=== PATIENT | male | born 2000 | race Caucasian/White ===

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

== ENCOUNTER 2022-09-06 14:51 | Emergency (ER) | payer OTHER, MEDICAID, SELFPAY ==
[2022-09-06 16:10] VITALS: BP 121/62; PULSE 72; RESP 16; TEMP 36.7; O2SAT 99; BMI 23.1
--- NOTE | 2022-09-06 16:13 | ED.GENADULT ---
HPI - General Adult General Chief complaint: Ear Problems Stated complaint: sore throat, ear pain Time Seen by Provider: 09/06/22 17:53 Source: patient Mode of arrival: ambulatory Limitations: no limitations History of Present Illness HPI narrative: 22 yo male presenting to the ER for evaluation of left sided ear pain, decreased hearing for the last 4 days. Also has sore throat for the last couple of days. Pain with swallowing and eating. No fever or chills. Minimal cough. He is not vaccinated for COVID or Flu. no known sick contacts at home. MD complaint: sore throat and left ear pain Onset (ago): day(s) (4) Location: face and mouth Radiation: non-radiation Quality: aching Pain Consistency: constant Relieving factors: none Exacerbating factors: eating Associated symptoms: headaches, loss of appetite, malaise and weakness Treatments prior to arrival: none Related Data Allergies Allergy/AdvReac Type Severity Reaction Status Date / Time No Known Allergies Allergy Unverified 05/27/20 17:07 Review of Systems Review of Systems: Constitutional: No Fever, No Chills ENT/Mouth: + sore throat, No Rhinorrhea, + Swallowing Difficulty, +Otalgia Cardiovascular: No Chest Pain, No SOB Respiratory: + Cough, No Sputum, No Wheezing, No dyspnea Gastrointestinal: No Nausea, No Vomiting, No Diarrhea, No abdominal Pain Musculoskeletal: No joint pain, + Myalgias Skin: No Skin Lesions, No rash Neuro: + Weakness, No Numbness, No Dizziness, + Headache Psych: No Anxiety/Panic, No Depression Heme/Lymph: No Lymphadenopathy PMFSH Past Medical History Medical History (Updated 09/06/22 @ 18:10 by JAMESON Li) No known health problems Social History Social History Advance Directives: No Advance Directives Information Provided: No Physical Exam ED Vital Signs: Vital Signs - 24 hr 09/06/22 16:10 Temperature 98.1 F Pulse Rate 72 Respiratory Rate 16 Blood Pressure 121/62 Pulse Oximetry 99 Oxygen Delivery Method Room Air BMI result Body Mass Index 23.1 Appearance: Alert. Oriented X3. No acute distress. Eyes: Pupils equal, round and reactive to light. ENT: Pharynx with moist mucus membranes. Moderate posterior pharyngeal erythema without notable exudate. uvula midline. normal voice and handling secretions normally. normal right TM and EAC. Left EAC blocked with cerumen. Neck: Normal inspection. Neck supple. CVS: Normal heart rate and rhythm. Pulses normal. Respiratory: No respiratory distress. Breath sounds normal. Skin: Skin warm and dry. Normal skin color. Normal skin turgor. No rashes. Extremities: No lower extremity edema. Neuro: Oriented X 3. grossly normal, nonfocal Course Course Course Narrative: 16:13 - 22 yo male presenting with left ear pain and sore throat for the last 4-5 days. Unknown if fevers at home. No sick contacts. Posterior pharyngeal erythema noted, uvula midline, difficulty visualizing tonsils. Left EAC blocked with cerumen, some EAC wall erythema noted. unable to visualize TM. will need to be irrigated or curetted for visualization. Will check strep, covid and flu swabs. Reevaluation(s) Reevaluation #1: COVID+. Strep negative. VS remain stable. No resp distress. Cerumen almost completely removed with irrigation and curette. Stable for d/c home with supportive care. Return precautions discussed. Procedures Ear Wax Removal Left Ear: Cerumenolytic Used: other (H2O2/NaCl combination) Results: Re-examined: some cerumen remains TM Examination: TM(s) intact, normal appearance Ear Canal Exam: atraumatic Patient Tolerated Procedure: well and no complications Complications: no problems Medical Decision Making Lab Data Labs: Lab Results 09/06/22 09/06/22 09/06/22 Range/Units 16:20 16:20 16:20 COVID-19 (KAREEM) Positive A (Negative) COVID-19 Clin Com See Note Influenza Type A (VALORIE) Negative (Negative) Influenza Type B (VALORIE) Negative (Negative) Influenza A & B Note See Note S. pyogenes GrpA VALORIE Negative (Negative) Discharge Plan Discharge Clinical Impression: Impacted cerumen of left ear, COVID-19 Patient Disposition: Home, Self-Care Instructions: Covid-19 Viral Syndrome and Novel Coronavirus (ED) Hey/Ath Additional Instructions: You were found to be COVID-19 POSITIVE today. Rest. Drink plenty of fluids. Do not go out in public for the one week. Take over the counter cold/flu medications as needed for your symptoms. Take Tylenol and/or Motrin as needed for fevers and body aches. Recommend over the counter Chloraseptic spray and Cepacol lozenges as needed for sore throat. Use warm salt water gargles 2-3 times per day. Use debrox drops in your ear. No Q-tips. Follow up with your doctor as needed. Stand Alone Forms: Work/School Release
[2022-09-06 16:49] LABS: COVID-19 Test Positive (Negative); IDNOW Serial# 16C4AD1C; Strep A Nucleic Acid Negative (Negative)
[2022-09-06 16:52] LABS: IDNOW Serial# BCCEAD1C; Influenza A Negative (Negative); Influenza B2 Negative (Negative)
--- OUTSIDE RECORDS SUMMARY | 2022-09-06 18:02 | XMS_ITS ---
:2000 Author Care Team Providers Name Role Phone [facility] Primary Care Provider [phone] Allergies Code Code System Name Reaction Severity Status Onset NKDA ? Medications Name Status Start Date Stop Date ? ? hydrocortisone 2.5 % topical cream Completed ? 09/08/2021 triamcinolone acetonide 0.1 % topical ointment Completed ? 09/08/2021 Problems No Known Problems Procedures None recorded. Results Lab Results Date Name Specimen Result Interpretation Description Value Range Status Address ? 09/08/2021 SARS CoV 2 ? Covid-19, ? ? Final [facility] RNA PCR Reference (COVID-19), Labor atories: QL, shoes hand sewer-PCR, [address], Spec[place] 09/08/2021 Rapid Flu ? Flu a negative ? ? Spr - Home: [address] (A+B) (Ref: Neg) [address], [place] ? ? ? Flu B (Ref: negative ? ? Sp r - Home: [address], [place] ? ? ? Control Visualized/Valid ? ? Spr - Home: [address], [place] ? ? ? Location [place], ? ? Spr - [address] [facility] [address], [facility], [address], [place] [address], [id number] 09/08/2021 Rapid SARS ? Covid-19 negative ? ? Spr - Home: [address] CoV 2 Ag, QL (Ref: Neg) [address], [place], [place] Res[place] Spec[place] ? ? ? Control Visualized/Valid ? ? Spr - Home: [address], [place] ? ? ? Location SPR, ? ? Spr - H ome: [address] [facility] [address], [facility], [address], [place] [address], [id number] ? ? ? Race & Other ? ? S pr - Home: [address], [place] ? ? ? Language [place] ? ? Spr - Home: [address] ? ? ? Disability None ? ? Spr - Home: [address] Past Encounters Encounter Date Diagnosis Provider 09/08/2021 Exposure to SARS-CoV-2; Acute Upper Cynthia donny Boone, ATTENDING PSYCHIATRIST: [address] [place] [place] [address], Ph. [phone] Social History Tobacco Smoking Status Never Smoker Vaccine List Notes: UTD with childhood vaccinastion s but no influenza or COVID vaccinations Plan of Care Patient Instructions Thank you for your visit with [facility] today. You were seen today because of your headache and cough. You may have received medications and lab tests may have been performed. At this time, we do not see evidence that you have a serious cause of your headache such as infection or bleeding. However, we cannot always find the exact cause of your symptoms on your initial visit. Please follow up wit h your doctor within 24 hours to be rech ecked. Seek immediate medical attention if your headache worsens, you develop a fever, neck pain or neck stiffness, or if you become confused or abnormally drowsy. Upper respiratory infection is irritatio n in the air passages of your lungs. This irritation may cause you to cough or have other breathing problems. This often starts because of another viral illness, such as a cold or the flu. The illness s preads from your nose and throat to your windpipe and airways. Bronchitis is often called a chest cold. Viral illness can last about 2 weeks and is usually not a serious illness. INSTRUCTIONS Medicines: Ibuprofen or acetaminophen: These medici susie help lower a fever and treat aches. Refer to the bottles for proper dosing based on age and weight. Use as needed. Do not take either of these medicines for m ore than 3 days in a row. Prolonged use of Ibuprofen can hurt your kidney and stomach. Prolonged use of Tylenol can injure your liver. Cough medicine: Avld-rkb-xtehkzy (OTC) m edicine helps loosen mucus in your lungs and make it easier to cough up. OTC cough medicine should NOT be used in children under age 3. Self Care: 1) Do not smoke or allow others to smoke around you. Please call the [employer] Quit Line at to help in smoking cessation. Avoid chemicals, fumes, and dust. 2) Stay well hydrated 3) Seek care immediately if you: - develop a fever - develop a rash - become increasingly short of breath o r you do not begin to improve 3-5 days (it may take 10 days for complete improvement) - cough up blood - have chest pain unrelated to coughing 4) Make appointment to follow up with n[facility]ace doctor within one week or sooner if directed by your [facility] provider. You will be notified if your COVID test is positive. Please home isolate until you are contacted and wear your mask as well as frequently wash your hands. If you develop any new or worsening symp toms and need after hours care, please go to nearest ER and/or call 911. If you have additional concerns or develop a change in your condition between 8am-10pm, p leoren call [facility] at [phone] to help navigate your care. If you develop any new or worsening symp toms and need after hours care, please go to nearest ER and/or call 911. If you have additional concerns or develop a change in your condition between 8am-10pm, p lease call [facility] at [phone] to help navigate your care. Reminders Provider Appointments None recorded. ? ? Lab None recorded. ? ? Referral None recorded. ? ? Procedures None recorded. ? ? Surgeries None recorded. ? ? Imaging None recorded. ? ? Vitals Blood Pressure 124/76 mm[Hg]
== END 2022-09-06 19:37 | disposition home or self-care (01) ==
PROVIDERS: Physician Assistant; Emergency Provider Emergency Medicine
DX: U07.1 COVID-19 (principal); H61.22 Impacted cerumen, left ear; J02.9 Acute pharyngitis, unspecified; R51.9 Headache, unspecified; Z79.899 Other long term (current) drug therapy
CPT/HCPCS: 69209; 87502; 87635; 87651; 99282; 99283

== ENCOUNTER 2023-03-26 23:29 | Emergency (ER) | payer OTHER, MEDICAID, SELFPAY ==
[2023-03-27 00:30] VITALS: BP 126/80; PULSE 63; RESP 16; TEMP 36.2; O2SAT 100; BMI 23.7
== END 2023-03-27 03:09 | disposition left against medical advice (07) ==
PROVIDERS: Emergency Provider Emergency Medicine
DX: L30.9 Dermatitis, unspecified (principal)
CPT/HCPCS: 99282

== ENCOUNTER 2023-04-19 14:09 | Outpatient (AMB) | payer OTHER, MEDICAID, SELFPAY ==
[2023-04-19 14:14] VITALS: BP 118/70; PULSE 60; O2SAT 99; BMI 23.2
--- NOTE | 2023-04-19 14:14 | A.OFFPC_ITS ---
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 Accompanied by: Self / Same As Patient Allergies No Known Allergies Allergy (Verified 04/19/23 15:15) Medication List - Last Reconciled 04/19/23 by MIRANDA Deras triamcinolone acetonide 0.1% 1 appl topical BID Tobacco use date assessed: 04/19/23 Dental Screening Dental Screen Date: 04/19/23 Did you have a dental visit in the last 12 months?: Yes Did you have a dental problem in the last 6 months where you did not have access to dental care?: No Was dental information given to patient?: Patient has dentist HPI HPI Comments History of Present Illness Details 22-year-old male new patient presents today for physical exam. Medical history significant for eczema. Patient states eczema as worsening and bilateral inner elbows and behind bilateral knees and around mouth. Patient reports used steroid cream from a friend which improved his rash. Eye exam:04/17/23 [facility]:Dr. Iglesias, will request immunization records. [facility] Surgical History No pertinent past surgical history Family History (Updated 04/19/23 @ 14:31 by MIRANDA Deras) Mother Gastritis Anemia Father No problems noted. Social History (Updated 04/19/23 @ 14:31 by MIRANDA Deras) Housing: Apartment Alcohol intake: current Alcohol intake frequency: holidays/special occasions only Alcohol type: wine Patient Tobacco Use Status: Former Tobacco user e-Cigarette/Vaping Use: Never Used service: No Current occupational status: employed Current occupation: [employer] job Current occupational exposures/hazards: Yes Cognitive needs: No Hearing needs: No Vision needs: Yes Questionnaire PHQ-9 Over the last 2 weeks, how often have you been bothered by any of the following problems? 1. Little interest or pleasure in doing things: several days 2. Feeling down, depressed, or hopeless: not at all 3. Trouble falling or staying asleep, or sleeping too much: several days 4. Feeling tired or having little energy: several days 5. Poor appetite or overeating: not at all 6. Feeling bad about yourself - or that you are a failure or have let yourself or your family down: several days 7. Trouble concentrating on things, such as reading the newspaper or watching television: not at all 8. Moving or speaking so slowly that other people could have noticed. Or the opposite - being so fidgety or restless that you have been moving around a lot more than usual: several days 9. Thoughts that you would be better off or of hurting yourself in some way: not at all Total score: 5 Depression Screening Interpretation: Positive 93155 - PHQ-9 Billing: Yes Source: Developed by Drs. Celestine Garcia, Nika Glass, Chet Nichole and colleagues, with an educational zackery from [employer]. Thrive Questionnaire Date Thrive assessed: 04/19/23 I am a: Patient What is your living situation today?: I have a steady place to live Within the past 12 months, did the food you bought not last and you didn't have the money to get more?: Never true Within the past 12 months, did you worry whether your food would run out before you got money to buy more?: Never true Do you have trouble paying for medicines?: No Do you have trouble getting transportation to medical appointments?: No Do you have trouble paying your heating and electricity bill?: No Do you have trouble taking care of your child, family member or friend?: No Do you have trouble with day-to-day activities such as bathing, preparing meals, shopping, managing finances, etc.?: No Are you currently unemployed and looking for a job?: No Are you interested in more education?: No Please select the resources that you would like help with: None Currently or been in a relationship where the following occur: no concerns reported DIANE-7 AMB Questionnaire DIANE-7 Date DIANE - 7 assessed: 04/19/23 Feeling nervous, anxious, or on edge: 0 = Not at all Not being able to stop or control worryin = Not at all Worrying too much about different things: 0 = Not at all Trouble relaxin = Not at all Being so restless that it is hard to sit still: 2 = More than half the days Becoming easily annoyed or irritable: 1 = Several days Feeling afraid as if something awful might happen: 0 = Not at all Total DIANE-7 score (0-4 normal; 5-9 mild; 10-14 moderate; 15-21 severe): 3 Source: Developed by Drs. Celestine Garcia, Nika Glass, Chet Nichole and colleagues, with an educational zackery from [employer]. DIANE-7 Assessment Billing DIANE-7 Assessment Tool: DIANE-7 Assessment 70784 Review of Systems Const Denies chills, Denies fatigue, Denies fever(s) and Denies poor appetite Eyes Denies no additional complaints ENT Reports Normal hearing present Card Denies chest pain, Denies syncope, Denies rapid heart rate and Denies dyspnea Resp Denies cough and Denies dyspnea GI Denies change in stool character, Denies constipation, Denies diarrhea, Denies nausea and Denies vomiting Denies dysuria, Denies urinary frequency and Denies urinary urgency Neuro Reports Normal hearing present, Denies confusion and Denies syncope Psych Denies confusion Endo Denies fatigue Physical exam (Primary Care) Vital Signs: Last Vital Signs Pulse 60 04/19/23 14:14 BP 118/70 04/19/23 14:14 Pulse Ox 99 04/19/23 14:14 BMI result Body Mass Index 23.2 Tobacco/Smoking Status: Tobacco use Status Tobacco use date assessed 04/19/23 04/19/23 14:23 Patient Tobacco Use Status Former Tobacco user 04/19/23 14:31 e-Cigarette/Vaping Use Never Used 04/19/23 14:31 PHQ-9: PHQ-9 Score PHQ-9: Total score 5 04/19/23 14:32 Depression Screening Interpretation: Positive Thrive Assessment: Date of Thrive Assessment Date Thrive assessed 04/19/23 04/19/23 14:23 Currently or been in a relationship where the following occur: no concerns reported Const General: No confusion Orientation/consciousness: No confusion HENMT Head: Yes normocephalic and Yes atraumatic Ears: external ears normal and TM's normal bilaterally General nose exam: Normal external nose present and Normal nasal mucous membranes and turbinates present Face and sinus: Yes normal facial exam and Yes sinuses nontender Mouth: moist mucous membranes Throat: Yes tonsils normal Eyes Conjunctivae: conjunctivae normal Sclerae: sclerae normal Pupils: Equal, round and reactive pupils present and Pupils normal by confrontation EOM: EOMs intact bilaterally Direct Ophthalmoscopy: normal light reflex Neck Neck: Yes no lymphadenopathy and Yes supple Thyroid: Thyroid normal Chest Chest palpation & inspection: normal inspection of the chest Resp Effort & Inspection: normal respiratory effort Auscultation: clear to auscultation bilaterally, no crackles, no rhonchi and no wheezes Cardio Rate: regular rate Rhythm: regular rhythm Peripheral pulses: radial pulses present and dorsalis pedis present GI Inspection: Yes normal to inspection Palpation (GI): Soft to palpation, nontender and No hepatosplenomegaly present Auscultation: normoactive bowel sounds Skin Other: Patient has dry skin to bilateral inner elbows and behind bilateral knees as well hypopigmented areas around mouth. Neuro General: No confusion Cranial nerves: Yes Equal, round and reactive pupils present and Yes Normal hearing present Cognition (Neuro): normal cognition Gait exam (Neuro): Normal gait present Motor exam (neuro): 5/5 motor strength present throughout Deep tendon reflexes (DTR's): Right brachioradialis reflex intensity grade: 2+, Left brachioradialis reflex intensity grade: 2+, Right patellar reflex intensity grade: 2+ and Left patellar reflex intensity grade: 2+ Extrem General: No edema Assessment and Plan Assessment & Plan (1) Eczema: Code(s): L30.9 - Dermatitis, unspecified Plan: Triamcinolone cream sent to patient's pharmacy to use b.i.d. times 14 days to bilateral lateral elbows and behind knees. Referral placed to Dermatology as requested by patient. (2) Physical exam, annual: Code(s): Z00.00 - Encounter for general adult medical examination without abnormal findings Plan: Follow up in 1 year. Routine STI testing ordered as requested by patient in addition to routine blood work. Plan Follow up in 1 year or sooner if needed. Orders: Orders Cholesterol Today Z13.220 - Encounter for screening for lipoid disorders Comprehensive [place]. Panel Fast Today Z13.1 - Encounter for screening for diabetes mellitus Complete Blood Count Auto Diff Today Z13.0 - Encounter for screening for diseases of the blood and blood-forming organs and certain disorders involving the immune mechanism TSH reflex Free T4 Today Z13.29 - Encounter for screening for other suspected endocrine disorder CT NG by PCR Today Z11.8 - Encounter for screening for other infectious and parasitic diseases Hepatitis B,C Profile Today Z11.3 - Encounter for screening for infections with a predominantly sexual mode of transmission HIV Ab/Ag Today Z11.3 - Encounter for screening for infections with a predominantly sexual mode of transmission Syphilis Screen Today Z11.3 - Encounter for screening for infections with a predominantly sexual mode of transmission Referrals Dermatology Referral L30.9 - Dermatitis, unspecified Medications: New triamcinolone acetonide 0.1% apply twice a day inner elbows and behind knees for 14 days 1 appl topical BID 30 grams 0RF L30.9 - Dermatitis, unspecified Coding Level of Care Code New Pt Prev Care 18-39yr([id number] Diagnoses Eczema L30.9 Physical exam, annual Z00.00 Additional Codes DIANE-7 Assessment Billing - DIANE-7 Assessment Tool: DIANE-7 Assessment [id number] ([id number])
== END 2023-04-19 14:50 | disposition home or self-care (01) ==
PROVIDERS: Visit Provider Nurse Practitioner Family
DX: L30.9 Dermatitis, unspecified (principal); Z00.00 Encounter for general adult medical examination without abnormal findings
CPT/HCPCS: 99385